=== PATIENT | male | born 1965 | race Caucasian/White ===

== ENCOUNTER 2017-05-09 17:28 | Inpatient (IN) | payer MEDICAID ==
[~2017-05-09] VITALS: Ht 165.1 cm; Wt 92.1 kg
[2017-05-09 18:12] LABS: BG BASE EXCESS 7.4 mmol/L (-2.0-2.0); BG CARBOXYHEMOGLOBIN 3.5 % (0.5-1.5); BG DEOXYHEMOGLOBIN 5.9 % (0.0-5.0); BG HCO3 ACT 38.1 mmol/L (22.0-26.0); BG METHEMOGLOBIN 0.4 % (0.0-1.5); BG OXYGEN SATURATION 93.9 % (92.0-98.5); BG OXYHEMOGLOBIN 90.2 % (94.0-97.0); BG PCO2 82.4 mmHg (35.0-45.0); BG PH 7.283 (7.350-7.450); BG PO2 79.6 mmHg (75.0-100.0); BG SAMPLE SITE RIGHT RADIAL; BG TOTAL HEMOGLOBIN 16.6 g/dL (12.0-18.0); BG VENT MODE NASAL CANNULA
[2017-05-09 18:53] LABS: BASOPHILS % 0.8 % (0.0-2.0); EOSINOPHILS % 0.1 % (0.0-5.0); HEMATOCRIT. 53.7 % (42.0-52.0); HEMOGLOBIN. 15.7 g/dL (14.0-18.0); LYMPHOCYTES % 15.7 % (20.0-50.0); MEAN CORPUSCULAR HEMOGLOBIN 21.9 pg (28.0-32.0); MEAN CORPUSCULAR VOLUME 74.9 fL (80.0-94.0); MEAN PLATELET VOLUME 8.8 fl (7.4-10.4); MONOCYTES % 5.5 % (2.0-8.0); NEUTROPHILS % 77.9 % (40.0-76.0); PLATELET 143 x1000/uL (130-400); RED BLOOD CELL COUNT 7.17 mill/uL (4.7-6.1)
[2017-05-09 18:55] LABS: CHLORIDE 100 mEq/L (98-107)
[2017-05-09 18:59] LABS: INR 1.3; PROTHROMBIN TIME 13.1 sec
[2017-05-09 19:05] LABS: CARBON DIOXIDE 38 mEq/L (21-32); TROPONIN I < 0.02 ng/mL (0.00-0.04)
[2017-05-09 19:49] LABS: PLATELET ESTIMATE NORMAL
[2017-05-09] MEDS ORDERED: IPRATROPIUM/ALBUTEROL 0.5-3(2.5)MG/3ML NEB INH PRN (21:30)
[2017-05-09] MEDS ORDERED: ONDANSETRON HCL 4MG/2ML VIAL IV PRN (21:30)
[2017-05-09 21:48] LABS: CLARITY URINE CLEAR (CLEAR); COLOR URINE DARK YELLOW (YELLOW); GLUCOSE URINE NEGATIVE (NEGATIVE); KETONES URINE NEGATIVE (NEGATIVE); LEUKOCYTE ESTERASE URINE NEGATIVE (NEGATIVE); NITRITE URINE NEGATIVE (NEGATIVE); OCCULT BLOOD URINE NEGATIVE (NEGATIVE); PROTEIN URINE NEGATIVE (NEGATIVE); SPECIFIC GRAVITY URINE 1.018 (1.005-1.030)
[2017-05-09 21:57] LABS: *AMPHETAMINES SCREEN URINE NEGATIVE (NEGATIVE); *BARBITURATES SCREEN URINE NEGATIVE (NEGATIVE); *BENZODIAZEPINES SCREEN URINE NEGATIVE (NEGATIVE); *COCAINE SCREEN URINE NEGATIVE (NEGATIVE); CANNABINOID URINE SCREEN NEGATIVE (NEGATIVE); METHADONE URINE SCREEN NEGATIVE (NEGATIVE); OPIATES URINE SCREEN NEGATIVE (NEGATIVE); PHENCYCLIDINE URINE SCREEN NEGATIVE (NEGATIVE)
[2017-05-10] VITALS (28 sets, daily range): BP systolic 83–139; BP diastolic 43–80
[2017-05-10] MEDS ORDERED: LEVOFLOXACIN 500MG PREMIX 100 ML IV NR (00:41)
[2017-05-10 05:50] LABS: CARBON DIOXIDE 35 mEq/L (21-32); CHLORIDE 100 mEq/L (98-107)
[2017-05-10 06:16] LABS: PHOSPHORUS 2.5 mg/dL (2.5-4.9)
[2017-05-10 07:02] LABS: BASOPHILS % 0.6 % (0.0-2.0); EOSINOPHILS % 0.2 % (0.0-5.0); HEMATOCRIT. 43.6 % (42.0-52.0); HEMOGLOBIN. 15.2 g/dL (14.0-18.0); LYMPHOCYTES % 10.6 % (20.0-50.0); MEAN CORPUSCULAR HEMOGLOBIN 27.7 pg (28.0-32.0); MEAN CORPUSCULAR VOLUME 79.4 fL (80.0-94.0); MONOCYTES % 6.2 % (2.0-8.0); NEUTROPHILS % 82.4 % (40.0-76.0); RED BLOOD CELL COUNT 5.49 mill/uL (4.7-6.1); RED CELL DISTRIBUTION WIDTH 21.5 % (11.6-14.6)
[2017-05-10 07:38] LABS: PLATELET 122 x1000/uL (130-400)
[2017-05-10] MEDS: PANTOPRAZOLE SODIUM 40 MG/VIAL IV SCH (09:00)
[2017-05-10] MEDS: IPRATROPIUM/ALBUTEROL 0.5-3(2.5)MG/3ML NEB INH SCH ×3 (09:14→20:55)
[2017-05-10 10:20] LABS: BG BASE EXCESS 6.3 mmol/L (-2.0-2.0); BG BILEVEL POS AIRWAY PRESSURE 15/5; BG DEOXYHEMOGLOBIN 4.4 % (0.0-5.0); BG FRACTION INSPIRED OXYGEN 100; BG HCO3 ACT 35.7 mmol/L (22.0-26.0); BG METHEMOGLOBIN 0.5 % (0.0-1.5); BG OXYGEN SATURATION 95.5 % (92.0-98.5); BG OXYHEMOGLOBIN 93.1 % (94.0-97.0); BG PH 7.307 (7.350-7.450); BG PO2 85.1 mmHg (75.0-100.0); BG PRESSURE SUPPORT 10; BG SAMPLE SITE RIGHT RADIAL; BG TOTAL HEMOGLOBIN 15.5 g/dL (12.0-18.0); BG VENT MODE MASK - BIPAP; BG VENT RATE 20 set
[2017-05-10] MEDS ORDERED: FUROSEMIDE 40MG/4ML VIAL IVP NR (11:15)
[2017-05-10] MEDS ORDERED: TRAMADOL 50MG TABLET PO PRN (12:30)
[2017-05-10] MEDS ORDERED: SUCCINYLCHOLINE CHLORIDE 200MG/10ML VIAL IV ONE (14:00)
[2017-05-10] MEDS: METHYLPREDNISOLONE SOD SUCC 125 MG/2 ML VIAL IV SCH ×2 (14:00→21:34)
[2017-05-10] MEDS ORDERED: ETOMIDATE 2MG/ML 10ML VIAL IV ONE (14:00)
[2017-05-10] MEDS: BUDESONIDE 0.5MG/2ML NEB HHN SCH ×2 (16:13→20:56)
[2017-05-10 18:36] LABS: BG BASE EXCESS 13.6 mmol/L (-2.0-2.0); BG BILEVEL POS AIRWAY PRESSURE 15/5; BG CARBOXYHEMOGLOBIN 1.7 % (0.5-1.5); BG DEOXYHEMOGLOBIN 8.2 % (0.0-5.0); BG FRACTION INSPIRED OXYGEN 100; BG HCO3 ACT 48.9 mmol/L (22.0-26.0); BG METHEMOGLOBIN 0.2 % (0.0-1.5); BG OXYGEN SATURATION 91.6 % (92.0-98.5); BG OXYHEMOGLOBIN 89.9 % (94.0-97.0); BG PCO2 129.9 mmHg (35.0-45.0); BG PH 7.194 (7.350-7.450); BG PO2 71.1 mmHg (75.0-100.0); BG SAMPLE SITE RIGHT RADIAL; BG TOTAL HEMOGLOBIN 16.5 g/dL (12.0-18.0); BG VENT MODE MASK - BIPAP
[2017-05-10 20:16] LABS: BG BASE EXCESS 9.4 mmol/L (-2.0-2.0); BG CARBOXYHEMOGLOBIN 1.9 % (0.5-1.5); BG DEOXYHEMOGLOBIN 14.5 % (0.0-5.0); BG FRACTION INSPIRED OXYGEN 100; BG HCO3 ACT 37.5 mmol/L (22.0-26.0); BG METHEMOGLOBIN 0.4 % (0.0-1.5); BG OXYGEN SATURATION 85.2 % (92.0-98.5); BG OXYHEMOGLOBIN 83.2 % (94.0-97.0); BG PCO2 65.1 mmHg (35.0-45.0); BG PH 7.378 (7.350-7.450); BG PO2 48.9 mmHg (75.0-100.0); BG SAMPLE SITE RIGHT BRACHIAL; BG TIDAL VOLUME(mL) 450 mL; BG TOTAL HEMOGLOBIN 15.3 g/dL (12.0-18.0); BG VENT MODE VENT - A/C; BG VENT RATE 16 set
[2017-05-10] MEDS ORDERED: SODIUM CHLORIDE 0.9% 250 ML IV ONE (20:30)
[2017-05-10] MEDS ORDERED: PROPOFOL 10MG/ML 100ML 100 ML IV PRN (20:45)
[2017-05-10] MEDS ORDERED: NOREPINEPHRINE 4 MG in DEXT 5% WATER 246 ML IV PRN (20:45)
[2017-05-10] MEDS ORDERED: SODIUM BICARBONATE 8.4% 1 MEQ/ML 50ML SYR IV SCH (20:45)
[2017-05-10] MEDS ORDERED: SODIUM BICARBONATE 100 MEQ in DEXTROSE 5% WATER 1,000 ML IV SCH (21:00)
[2017-05-10] MEDS ORDERED: SODIUM CHLORIDE 0.9% 250 ML IV NR (21:23)
[2017-05-11] VITALS (97 sets, daily range): BP systolic 82–122; BP diastolic 38–99
[2017-05-11] MEDS: LEVOFLOXACIN 500MG PREMIX 100 ML IV SCH (01:52)
[2017-05-11] MEDS ORDERED: LEVOFLOXACIN 500MG PREMIX 100 ML IV SCH (02:00)
[2017-05-11] MEDS: IPRATROPIUM/ALBUTEROL 0.5-3(2.5)MG/3ML NEB INH SCH ×4 (02:08→19:49)
[2017-05-11 05:16] LABS: HEMATOCRIT. 48.3 % (42.0-52.0); HEMOGLOBIN. 14.5 g/dL (14.0-18.0); MEAN CORPUSCULAR HEMOGLOBIN 22.9 pg (28.0-32.0); MEAN CORPUSCULAR VOLUME 76.1 fL (80.0-94.0); PLATELET 116 x1000/uL (130-400); RED BLOOD CELL COUNT 6.35 mill/uL (4.7-6.1); RED CELL DISTRIBUTION WIDTH 21.1 % (11.6-14.6)
[2017-05-11] MEDS: METHYLPREDNISOLONE SOD SUCC 125 MG/2 ML VIAL IV SCH ×3 (05:48→21:55)
[2017-05-11 05:49] LABS: CARBON DIOXIDE 38 mEq/L (21-32); CHLORIDE 98 mEq/L (98-107); TOTAL IRON BINDING CAPACITY 490 ug/dL (250-450)
[2017-05-11 07:07] LABS: PLATELET ESTIMATE DECREASED
[2017-05-11 07:23] LABS: BG BASE EXCESS 13.5 mmol/L (-2.0-2.0); BG CARBOXYHEMOGLOBIN 1.6 % (0.5-1.5); BG DEOXYHEMOGLOBIN 5.2 % (0.0-5.0); BG FRACTION INSPIRED OXYGEN 100; BG HCO3 ACT 37.6 mmol/L (22.0-26.0); BG METHEMOGLOBIN 0.3 % (0.0-1.5); BG OXYGEN SATURATION 94.7 % (92.0-98.5); BG OXYHEMOGLOBIN 92.9 % (94.0-97.0); BG PCO2 44.3 mmHg (35.0-45.0); BG PH 7.547 (7.350-7.450); BG PO2 66.2 mmHg (75.0-100.0); BG SAMPLE SITE RIGHT BRACHIAL; BG TIDAL VOLUME(mL) 500 mL; BG TOTAL HEMOGLOBIN 15.7 g/dL (12.0-18.0); BG VENT MODE VENT - A/C; BG VENT RATE 14 set
[2017-05-11] MEDS ORDERED: DEXT 5%/0.45% NACL KCL 10MEQ/L 1,000 ML IV SCH (08:30)
[2017-05-11] MEDS: BUDESONIDE 0.5MG/2ML NEB HHN SCH (08:44)
[2017-05-11] MEDS: PANTOPRAZOLE SODIUM 40 MG/VIAL IV SCH (09:34)
[2017-05-11] MEDS: FUROSEMIDE 40MG/4ML VIAL IVP SCH (10:40)
[2017-05-11] MEDS ORDERED: POTASSIUM CHLORIDE INJ 40 MEQ in DEXT 5% WATER 250 ML IV NR (12:00)
[2017-05-11] MEDS: IRON SUCROSE COMPLEX 100 MG/5 ML ML IV SCH (17:52)
[2017-05-12] VITALS (61 sets, daily range): BP systolic 93–114; BP diastolic 46–68
[2017-05-12] MEDS: LEVOFLOXACIN 500MG PREMIX 100 ML IV SCH (01:49)
[2017-05-12] MEDS: IPRATROPIUM/ALBUTEROL 0.5-3(2.5)MG/3ML NEB INH SCH ×4 (01:56→19:53)
[2017-05-12 04:23] LABS: HEMATOCRIT. 51.2 % (42.0-52.0); HEMOGLOBIN. 15.5 g/dL (14.0-18.0); MEAN CORPUSCULAR HEMOGLOBIN 22.1 pg (28.0-32.0); MEAN CORPUSCULAR VOLUME 72.9 fL (80.0-94.0); PLATELET 130 x1000/uL (130-400); RED BLOOD CELL COUNT 7.02 mill/uL (4.7-6.1); RED CELL DISTRIBUTION WIDTH 21.8 % (11.6-14.6)
[2017-05-12 04:36] LABS: CARBON DIOXIDE 33 mEq/L (21-32); CHLORIDE 103 mEq/L (98-107)
[2017-05-12] MEDS: METHYLPREDNISOLONE SOD SUCC 125 MG/2 ML VIAL IV SCH (05:20)
[2017-05-12 07:25] LABS: NUCLEATED RED BLOOD CELLS 1 /100 WBC; PLATELET ESTIMATE NORMAL
[2017-05-12 07:32] LABS: BG BASE EXCESS 5.9 mmol/L (-2.0-2.0); BG CARBOXYHEMOGLOBIN 0.9 % (0.5-1.5); BG DEOXYHEMOGLOBIN 6.1 % (0.0-5.0); BG FRACTION INSPIRED OXYGEN 100; BG HCO3 ACT 30.8 mmol/L (22.0-26.0); BG METHEMOGLOBIN 0.2 % (0.0-1.5); BG OXYGEN SATURATION 93.8 % (92.0-98.5); BG OXYHEMOGLOBIN 92.8 % (94.0-97.0); BG PCO2 44.9 mmHg (35.0-45.0); BG PH 7.454 (7.350-7.450); BG PO2 68.2 mmHg (75.0-100.0); BG SAMPLE SITE RIGHT RADIAL; BG TIDAL VOLUME(mL) 450 mL; BG TOTAL HEMOGLOBIN 16.1 g/dL (12.0-18.0); BG VENT MODE VENT - A/C; BG VENT RATE 14 set
[2017-05-12] MEDS: BUDESONIDE 0.5MG/2ML NEB HHN SCH ×2 (08:40→19:53)
[2017-05-12] MEDS: PANTOPRAZOLE SODIUM 40 MG/VIAL IV SCH (09:04)
[2017-05-12] MEDS: FUROSEMIDE 40MG/4ML VIAL IVP SCH (09:04)
[2017-05-12] MEDS: IRON SUCROSE COMPLEX 100 MG/5 ML ML IV SCH (09:04)
[2017-05-12] MEDS ORDERED: MORPHINE SULFATE 2 MG/ML CPJ (NOT FOR IM USE) IV PRN (09:15)
[2017-05-12] MEDS ORDERED: POTASSIUM CHLORIDE 20MEQ/PACKET PO SCH (09:30)
[2017-05-12] MEDS: METHYLPREDNISOLONE SOD SUCC 40 MG/ML VIAL IV SCH ×2 (14:46→21:25)
[2017-05-12] MEDS: ENOXAPARIN 30MG/0.3ML SYR SUBCUT SCH (21:25)
[2017-05-13] VITALS (28 sets, daily range): BP systolic 91–111; BP diastolic 39–67
[2017-05-13] MEDS: IPRATROPIUM/ALBUTEROL 0.5-3(2.5)MG/3ML NEB INH SCH ×4 (01:55→21:10)
[2017-05-13] MEDS: LEVOFLOXACIN 500MG PREMIX 100 ML IV SCH (02:11)
[2017-05-13 04:56] LABS: HEMATOCRIT. 52.7 % (42.0-52.0); HEMOGLOBIN. 15.7 g/dL (14.0-18.0); MEAN CORPUSCULAR HEMOGLOBIN 21.5 pg (28.0-32.0); MEAN CORPUSCULAR VOLUME 72.3 fL (80.0-94.0); RED CELL DISTRIBUTION WIDTH 22.8 % (11.6-14.6)
[2017-05-13 05:22] LABS: CARBON DIOXIDE 33 mEq/L (21-32); CHLORIDE 106 mEq/L (98-107)
[2017-05-13] MEDS: METHYLPREDNISOLONE SOD SUCC 40 MG/ML VIAL IV SCH ×3 (05:59→21:30)
[2017-05-13 07:21] LABS: PLATELET ESTIMATE NORMAL
[2017-05-13 07:23] LABS: BG BASE EXCESS 4.7 mmol/L (-2.0-2.0); BG CARBOXYHEMOGLOBIN 1.1 % (0.5-1.5); BG DEOXYHEMOGLOBIN 5.8 % (0.0-5.0); BG HCO3 ACT 29.6 mmol/L (22.0-26.0); BG METHEMOGLOBIN 0.3 % (0.0-1.5); BG OXYGEN SATURATION 94.1 % (92.0-98.5); BG OXYHEMOGLOBIN 92.8 % (94.0-97.0); BG PCO2 44.6 mmHg (35.0-45.0); BG PO2 70.8 mmHg (75.0-100.0); BG SAMPLE SITE RIGHT RADIAL; BG TIDAL VOLUME(mL) 450 mL; BG TOTAL HEMOGLOBIN 16.7 g/dL (12.0-18.0); BG VENT MODE VENT - A/C; BG VENT RATE 10 set
[2017-05-13 07:24] LABS: MEAN PLATELET VOLUME 8.7 fl (7.4-10.4); PLATELET 129 x1000/uL (130-400)
[2017-05-13] MEDS: BUDESONIDE 0.5MG/2ML NEB HHN SCH (08:30)
[2017-05-13] MEDS: IRON SUCROSE COMPLEX 100 MG/5 ML ML IV SCH (08:31)
[2017-05-13] MEDS: ENOXAPARIN 30MG/0.3ML SYR SUBCUT SCH ×2 (08:31→21:30)
[2017-05-13] MEDS: PANTOPRAZOLE SODIUM 40 MG/VIAL IV SCH (08:31)
[2017-05-13] MEDS: FUROSEMIDE 40MG/4ML VIAL IVP SCH (08:31)
[2017-05-14] VITALS (22 sets, daily range): BP systolic 85–120; BP diastolic 49–74
[2017-05-14] MEDS: LEVOFLOXACIN 500MG PREMIX 100 ML IV SCH (01:52)
[2017-05-14] MEDS: IPRATROPIUM/ALBUTEROL 0.5-3(2.5)MG/3ML NEB INH SCH ×4 (02:10→20:23)
[2017-05-14 05:07] LABS: HEMATOCRIT. 47.8 % (42.0-52.0); MEAN CORPUSCULAR HEMOGLOBIN 25.7 pg (28.0-32.0); MEAN CORPUSCULAR VOLUME 76.7 fL (80.0-94.0); MEAN PLATELET VOLUME 8.9 fl (7.4-10.4); PLATELET 134 x1000/uL (130-400); RED BLOOD CELL COUNT 6.22 mill/uL (4.7-6.1); RED CELL DISTRIBUTION WIDTH 22.2 % (11.6-14.6)
[2017-05-14 05:12] LABS: CARBON DIOXIDE 33 mEq/L (21-32); CHLORIDE 107 mEq/L (98-107)
[2017-05-14] MEDS: METHYLPREDNISOLONE SOD SUCC 40 MG/ML VIAL IV SCH ×3 (05:30→21:12)
[2017-05-14 06:00] LABS: PLATELET ESTIMATE NORMAL
[2017-05-14 08:02] LABS: BG BASE EXCESS 8.2 mmol/L (-2.0-2.0); BG DEOXYHEMOGLOBIN 8.4 % (0.0-5.0); BG FRACTION INSPIRED OXYGEN 80; BG HCO3 ACT 34.8 mmol/L (22.0-26.0); BG METHEMOGLOBIN 0.2 % (0.0-1.5); BG OXYGEN SATURATION 91.5 % (92.0-98.5); BG OXYHEMOGLOBIN 90.4 % (94.0-97.0); BG PCO2 54.3 mmHg (35.0-45.0); BG PH 7.425 (7.350-7.450); BG PO2 63.3 mmHg (75.0-100.0); BG SAMPLE SITE RIGHT RADIAL; BG TIDAL VOLUME(mL) 450 mL; BG TOTAL HEMOGLOBIN 17.4 g/dL (12.0-18.0); BG VENT MODE VENT - A/C; BG VENT RATE 10 set
[2017-05-14] MEDS: IRON SUCROSE COMPLEX 100 MG/5 ML ML IV SCH (08:45)
[2017-05-14] MEDS: ENOXAPARIN 30MG/0.3ML SYR SUBCUT SCH ×2 (08:45→21:17)
[2017-05-14] MEDS: PANTOPRAZOLE SODIUM 40 MG/VIAL IV SCH (08:45)
[2017-05-14] MEDS: FUROSEMIDE 40MG/4ML VIAL IVP SCH (08:45)
[2017-05-15] VITALS (36 sets, daily range): BP systolic 82–119; BP diastolic 52–73
[2017-05-15] MEDS: IPRATROPIUM/ALBUTEROL 0.5-3(2.5)MG/3ML NEB INH SCH ×4 (01:06→19:59)
[2017-05-15] MEDS: LEVOFLOXACIN 500MG PREMIX 100 ML IV SCH (01:58)
[2017-05-15] MEDS: METHYLPREDNISOLONE SOD SUCC 40 MG/ML VIAL IV SCH ×2 (05:11→21:26)
[2017-05-15 05:27] LABS: HEMATOCRIT. 50.4 % (42.0-52.0); HEMOGLOBIN. 16.7 g/dL (14.0-18.0); MEAN CORPUSCULAR VOLUME 81.5 fL (80.0-94.0); RED BLOOD CELL COUNT 6.18 mill/uL (4.7-6.1)
[2017-05-15 05:47] LABS: CARBON DIOXIDE 35 mEq/L (21-32); CHLORIDE 106 mEq/L (98-107)
[2017-05-15 07:12] LABS: PLATELET ESTIMATE NORMAL
[2017-05-15 07:18] LABS: MEAN PLATELET VOLUME 9.1 fl (7.4-10.4); PLATELET 131 x1000/uL (130-400)
[2017-05-15 07:50] LABS: BG BASE EXCESS 8.1 mmol/L (-2.0-2.0); BG CARBOXYHEMOGLOBIN 1.3 % (0.5-1.5); BG DEOXYHEMOGLOBIN 5.5 % (0.0-5.0); BG FRACTION INSPIRED OXYGEN 60; BG HCO3 ACT 34.9 mmol/L (22.0-26.0); BG METHEMOGLOBIN 0.5 % (0.0-1.5); BG OXYGEN SATURATION 94.4 % (92.0-98.5); BG OXYHEMOGLOBIN 92.7 % (94.0-97.0); BG PCO2 55.1 mmHg (35.0-45.0); BG PO2 74.3 mmHg (75.0-100.0); BG SAMPLE SITE RIGHT RADIAL; BG TIDAL VOLUME(mL) 450 mL; BG TOTAL HEMOGLOBIN 18.2 g/dL (12.0-18.0); BG VENT MODE VENT - A/C; BG VENT RATE 10 set
[2017-05-15] MEDS: PANTOPRAZOLE SODIUM 40 MG/VIAL IV SCH (09:31)
[2017-05-15] MEDS: IRON SUCROSE COMPLEX 100 MG/5 ML ML IV SCH (09:31)
[2017-05-15] MEDS: ENOXAPARIN 30MG/0.3ML SYR SUBCUT SCH ×2 (09:31→21:26)
[2017-05-15] MEDS: FUROSEMIDE 40MG/4ML VIAL IVP SCH (09:32)
[2017-05-16] VITALS (61 sets, daily range): BP systolic 84–116; BP diastolic 37–67
[2017-05-16] MEDS: IPRATROPIUM/ALBUTEROL 0.5-3(2.5)MG/3ML NEB INH SCH ×3 (02:17→21:21)
[2017-05-16] MEDS: LEVOFLOXACIN 500MG PREMIX 100 ML IV SCH (02:21)
[2017-05-16 07:35] LABS: BG BASE EXCESS 9.5 mmol/L (-2.0-2.0); BG FRACTION INSPIRED OXYGEN 50; BG HCO3 ACT 37.5 mmol/L (22.0-26.0); BG METHEMOGLOBIN 0.2 % (0.0-1.5); BG OXYHEMOGLOBIN 94.8 % (94.0-97.0); BG PCO2 61.3 mmHg (35.0-45.0); BG PH 7.405 (7.350-7.450); BG PO2 78.4 mmHg (75.0-100.0); BG SAMPLE SITE RIGHT RADIAL; BG TIDAL VOLUME(mL) 450 mL; BG TOTAL HEMOGLOBIN 18.7 g/dL (12.0-18.0); BG VENT MODE VENT - A/C; BG VENT RATE 10 set
[2017-05-16] MEDS: ENOXAPARIN 30MG/0.3ML SYR SUBCUT SCH ×2 (08:42→21:30)
[2017-05-16] MEDS: FUROSEMIDE 40MG/4ML VIAL IVP SCH (08:43)
[2017-05-16] MEDS: PANTOPRAZOLE SODIUM 40 MG/VIAL IV SCH (08:43)
[2017-05-16] MEDS: METHYLPREDNISOLONE SOD SUCC 40 MG/ML VIAL IV SCH ×2 (08:43→21:30)
[2017-05-16] MEDS ORDERED: MAGNESIUM CITRATE 300ML SOLUTION PO SCH (09:00)
[2017-05-16 13:08] LABS: BG BASE EXCESS 12.4 mmol/L (-2.0-2.0); BG CARBOXYHEMOGLOBIN 0.5 % (0.5-1.5); BG CPAP (cmH2O) 0 cm(H2O); BG DEOXYHEMOGLOBIN 5.7 % (0.0-5.0); BG HCO3 ACT 40.7 mmol/L (22.0-26.0); BG METHEMOGLOBIN 0.3 % (0.0-1.5); BG OXYGEN SATURATION 94.3 % (92.0-98.5); BG OXYHEMOGLOBIN 93.5 % (94.0-97.0); BG PCO2 62.4 mmHg (35.0-45.0); BG PH 7.432 (7.350-7.450); BG PO2 72.5 mmHg (75.0-100.0); BG SAMPLE SITE RIGHT RADIAL; BG TOTAL HEMOGLOBIN 19.2 g/dL (12.0-18.0); BG VENT MODE VENT - CPAP
[2017-05-16] MEDS: LACTULOSE 20G/30ML UDC PO PRN (17:46)
[2017-05-17] VITALS (45 sets, daily range): BP systolic 67–134; BP diastolic 29–91
[2017-05-17] MEDS: LEVOFLOXACIN 500MG PREMIX 100 ML IV SCH (02:16)
[2017-05-17] MEDS: IPRATROPIUM/ALBUTEROL 0.5-3(2.5)MG/3ML NEB INH SCH ×4 (02:38→20:04)
[2017-05-17] MEDS: PANTOPRAZOLE SODIUM 40 MG/VIAL IV SCH (09:07)
[2017-05-17] MEDS: METHYLPREDNISOLONE SOD SUCC 40 MG/ML VIAL IV SCH ×2 (09:07→21:03)
[2017-05-17] MEDS: ENOXAPARIN 30MG/0.3ML SYR SUBCUT SCH ×2 (09:12→21:03)
[2017-05-17 11:11] LABS: BG BASE EXCESS 6.7 mmol/L (-2.0-2.0); BG CARBOXYHEMOGLOBIN 1.3 % (0.5-1.5); BG DEOXYHEMOGLOBIN 5.6 % (0.0-5.0); BG FRACTION INSPIRED OXYGEN 60; BG HCO3 ACT 34.8 mmol/L (22.0-26.0); BG METHEMOGLOBIN 0.6 % (0.0-1.5); BG OXYGEN SATURATION 94.3 % (92.0-98.5); BG OXYHEMOGLOBIN 92.5 % (94.0-97.0); BG PCO2 60.8 mmHg (35.0-45.0); BG PH 7.376 (7.350-7.450); BG PO2 74.3 mmHg (75.0-100.0); BG SAMPLE SITE RIGHT RADIAL; BG TOTAL HEMOGLOBIN 19.1 g/dL (12.0-18.0); BG VENT MODE T-TUBE
[2017-05-18] VITALS (44 sets, daily range): BP systolic 89–117; BP diastolic 42–66
[2017-05-18] MEDS: LEVOFLOXACIN 500MG PREMIX 100 ML IV SCH (02:05)
[2017-05-18] MEDS: IPRATROPIUM/ALBUTEROL 0.5-3(2.5)MG/3ML NEB INH SCH ×4 (02:11→19:51)
[2017-05-18 05:28] LABS: HEMOGLOBIN. 17.3 g/dL (14.0-18.0); MEAN CORPUSCULAR HEMOGLOBIN 28.3 pg (28.0-32.0); MEAN CORPUSCULAR VOLUME 83.4 fL (80.0-94.0); MEAN PLATELET VOLUME 9.5 fl (7.4-10.4); PLATELET 126 x1000/uL (130-400); RED BLOOD CELL COUNT 6.11 mill/uL (4.7-6.1); RED CELL DISTRIBUTION WIDTH 23.9 % (11.6-14.6)
[2017-05-18 05:48] LABS: CARBON DIOXIDE 38 mEq/L (21-32); CHLORIDE 108 mEq/L (98-107)
[2017-05-18 07:08] LABS: PLATELET ESTIMATE SLIGHTLY DECREASED
[2017-05-18] MEDS ORDERED: LORAZEPAM 2MG/ML CPJ IV NR (08:15)
[2017-05-18] MEDS ORDERED: SODIUM CHLORIDE 0.45% 500 ML IV ONE (09:15)
[2017-05-18] MEDS ORDERED: BISACODYL 5MG TABLET PO NR (09:15)
[2017-05-18] MEDS: ENOXAPARIN 30MG/0.3ML SYR SUBCUT SCH ×2 (09:49→20:46)
[2017-05-18] MEDS: METHYLPREDNISOLONE SOD SUCC 40 MG/ML VIAL IV SCH ×2 (09:49→20:46)
[2017-05-18] MEDS: PANTOPRAZOLE SODIUM 40 MG/VIAL IV SCH (09:49)
[2017-05-18] MEDS: DOCUSATE SODIUM 250MG CAPSULE PO SCH (09:50)
[2017-05-18] MEDS ORDERED: MAGNESIUM CITRATE 300ML SOLUTION PO NR (10:30)
[2017-05-19] VITALS (37 sets, daily range): BP systolic 83–107; BP diastolic 45–71
[2017-05-19] MEDS: IPRATROPIUM/ALBUTEROL 0.5-3(2.5)MG/3ML NEB INH SCH ×4 (01:51→20:32)
[2017-05-19 05:28] LABS: HEMATOCRIT. 55.8 % (42.0-52.0); HEMOGLOBIN. 16.5 g/dL (14.0-18.0); MEAN CORPUSCULAR HEMOGLOBIN 23.2 pg (28.0-32.0); MEAN CORPUSCULAR VOLUME 78.4 fL (80.0-94.0); MEAN PLATELET VOLUME 9.3 fl (7.4-10.4); PLATELET 128 x1000/uL (130-400); RED BLOOD CELL COUNT 7.12 mill/uL (4.7-6.1); RED CELL DISTRIBUTION WIDTH 23.7 % (11.6-14.6)
[2017-05-19 05:50] LABS: CARBON DIOXIDE 39 mEq/L (21-32); CHLORIDE 103 mEq/L (98-107)
[2017-05-19 07:44] LABS: PLATELET ESTIMATE DECREASED
[2017-05-19 08:04] LABS: BG BASE EXCESS 11.5 mmol/L (-2.0-2.0); BG FRACTION INSPIRED OXYGEN 40; BG HCO3 ACT 42.5 mmol/L (22.0-26.0); BG METHEMOGLOBIN 0.5 % (0.0-1.5); BG OXYGEN SATURATION 92.7 % (92.0-98.5); BG OXYHEMOGLOBIN 89.5 % (94.0-97.0); BG PH 7.322 (7.350-7.450); BG PO2 68.6 mmHg (75.0-100.0); BG SAMPLE SITE LEFT RADIAL; BG TOTAL HEMOGLOBIN 17.3 g/dL (12.0-18.0); BG VENT MODE MASK - AEROSOL
[2017-05-19] MEDS: LACTULOSE 20G/30ML UDC PO PRN (09:27)
[2017-05-19] MEDS: PANTOPRAZOLE SODIUM 40 MG/VIAL IV SCH (09:27)
[2017-05-19] MEDS: ENOXAPARIN 30MG/0.3ML SYR SUBCUT SCH ×2 (09:30→20:56)
[2017-05-19] MEDS: DOCUSATE SODIUM 250MG CAPSULE PO SCH (09:30)
[2017-05-19] MEDS: METHYLPREDNISOLONE SOD SUCC 40 MG/ML VIAL IV SCH (11:54)
[2017-05-19 13:33] LABS: BG BASE EXCESS 12.1 mmol/L (-2.0-2.0); BG CARBOXYHEMOGLOBIN 2.8 % (0.5-1.5); BG DEOXYHEMOGLOBIN 4.6 % (0.0-5.0); BG FRACTION INSPIRED OXYGEN 40; BG HCO3 ACT 42.6 mmol/L (22.0-26.0); BG METHEMOGLOBIN 0.5 % (0.0-1.5); BG OXYGEN SATURATION 95.2 % (92.0-98.5); BG OXYHEMOGLOBIN 92.1 % (94.0-97.0); BG PCO2 80.2 mmHg (35.0-45.0); BG PH 7.343 (7.350-7.450); BG PO2 78.8 mmHg (75.0-100.0); BG SAMPLE SITE RIGHT RADIAL; BG TOTAL HEMOGLOBIN 17.3 g/dL (12.0-18.0); BG VENT MODE NASAL CANNULA
[2017-05-20] VITALS (31 sets, daily range): BP systolic 74–111; BP diastolic 38–67
[2017-05-20] MEDS: IPRATROPIUM/ALBUTEROL 0.5-3(2.5)MG/3ML NEB INH SCH ×4 (01:56→21:05)
[2017-05-20 05:24] LABS: BASOPHILS % 0.7 % (0.0-2.0); EOSINOPHILS % 0.1 % (0.0-5.0); HEMATOCRIT. 55.5 % (42.0-52.0); HEMOGLOBIN. 16.1 g/dL (14.0-18.0); LYMPHOCYTES % 11.6 % (20.0-50.0); MEAN CORPUSCULAR HEMOGLOBIN 22.4 pg (28.0-32.0); MEAN CORPUSCULAR VOLUME 77.5 fL (80.0-94.0); MONOCYTES % 4.9 % (2.0-8.0); NEUTROPHILS % 82.7 % (40.0-76.0); RED BLOOD CELL COUNT 7.16 mill/uL (4.7-6.1)
[2017-05-20 05:42] LABS: CHLORIDE 100 mEq/L (98-107)
[2017-05-20 07:43] LABS: BG BASE EXCESS 11.4 mmol/L (-2.0-2.0); BG BILEVEL POS AIRWAY PRESSURE 15/5; BG CARBOXYHEMOGLOBIN 2.7 % (0.5-1.5); BG DEOXYHEMOGLOBIN 8.5 % (0.0-5.0); BG FRACTION INSPIRED OXYGEN 40; BG HCO3 ACT 39.5 mmol/L (22.0-26.0); BG METHEMOGLOBIN 0.2 % (0.0-1.5); BG OXYGEN SATURATION 91.2 % (92.0-98.5); BG OXYHEMOGLOBIN 88.6 % (94.0-97.0); BG PH 7.408 (7.350-7.450); BG PO2 60.9 mmHg (75.0-100.0); BG SAMPLE SITE RIGHT RADIAL; BG TOTAL HEMOGLOBIN 16.9 g/dL (12.0-18.0); BG VENT MODE MASK - BIPAP
[2017-05-20 07:52] LABS: PLATELET 116 x1000/uL (130-400)
[2017-05-20 08:32] LABS: CARBON DIOXIDE 42 mEq/L (21-32)
[2017-05-20] MEDS: DOCUSATE SODIUM 250MG CAPSULE PO SCH (09:34)
[2017-05-20] MEDS: PREDNISONE 20MG TABLET PO SCH (09:35)
[2017-05-20] MEDS: LACTULOSE 20G/30ML UDC PO PRN ×2 (09:35→18:43)
[2017-05-20] MEDS: PANTOPRAZOLE SODIUM 40 MG/VIAL IV SCH (09:35)
[2017-05-20] MEDS: ENOXAPARIN 30MG/0.3ML SYR SUBCUT SCH ×2 (09:35→20:43)
[2017-05-20] MEDS ORDERED: LACTULOSE 20G/30ML UDC PO NR (14:42)
[2017-05-21] VITALS (38 sets, daily range): BP systolic 87–108; BP diastolic 48–67
[2017-05-21] MEDS: IPRATROPIUM/ALBUTEROL 0.5-3(2.5)MG/3ML NEB INH SCH ×4 (03:32→20:31)
[2017-05-21 06:25] LABS: HEMATOCRIT. 52.8 % (42.0-52.0); HEMOGLOBIN. 15.5 g/dL (14.0-18.0); MEAN CORPUSCULAR HEMOGLOBIN 22.6 pg (28.0-32.0); MEAN CORPUSCULAR VOLUME 77.1 fL (80.0-94.0); MEAN PLATELET VOLUME 8.7 fl (7.4-10.4); PLATELET 111 x1000/uL (130-400); RED BLOOD CELL COUNT 6.85 mill/uL (4.7-6.1); RED CELL DISTRIBUTION WIDTH 24.5 % (11.6-14.6)
[2017-05-21 07:15] LABS: PLATELET ESTIMATE SLIGHTLY DECREASED
[2017-05-21 07:26] LABS: CARBON DIOXIDE 39 mEq/L (21-32); CHLORIDE 98 mEq/L (98-107)
[2017-05-21] MEDS: PANTOPRAZOLE SODIUM 40 MG/VIAL IV SCH (08:48)
[2017-05-21] MEDS: PREDNISONE 20MG TABLET PO SCH (08:48)
[2017-05-21] MEDS: DOCUSATE SODIUM 250MG CAPSULE PO SCH (08:48)
[2017-05-21] MEDS: ENOXAPARIN 30MG/0.3ML SYR SUBCUT SCH ×2 (08:49→21:48)
[2017-05-21 08:55] LABS: BG BASE EXCESS 9.1 mmol/L (-2.0-2.0); BG BILEVEL POS AIRWAY PRESSURE 15/5; BG DEOXYHEMOGLOBIN 5.8 % (0.0-5.0); BG FRACTION INSPIRED OXYGEN 40; BG METHEMOGLOBIN 0.5 % (0.0-1.5); BG OXYHEMOGLOBIN 90.7 % (94.0-97.0); BG PH 7.359 (7.350-7.450); BG PO2 73.8 mmHg (75.0-100.0); BG SAMPLE SITE RIGHT RADIAL; BG TOTAL HEMOGLOBIN 16.8 g/dL (12.0-18.0); BG VENT MODE MASK - BIPAP
[2017-05-21] MEDS ORDERED: POTASSIUM CHLORIDE 20MEQ TABLET SR PO SCH (09:45)
[2017-05-21] MEDS: DOCUSATE SODIUM SUGAR FREE 100MG/10ML UDC PO SCH (09:45)
[2017-05-22] VITALS (16 sets, daily range): BP systolic 85–101; BP diastolic 48–65
[2017-05-22] MEDS: IPRATROPIUM/ALBUTEROL 0.5-3(2.5)MG/3ML NEB INH SCH ×4 (01:25→20:31)
[2017-05-22 06:52] LABS: BASOPHILS % 0.3 % (0.0-2.0); EOSINOPHILS % 0.2 % (0.0-5.0); HEMATOCRIT. 49.8 % (42.0-52.0); HEMOGLOBIN. 15.2 g/dL (14.0-18.0); LYMPHOCYTES % 17.4 % (20.0-50.0); MEAN CORPUSCULAR HEMOGLOBIN 24.3 pg (28.0-32.0); MEAN CORPUSCULAR VOLUME 79.7 fL (80.0-94.0); MEAN PLATELET VOLUME 9.1 fl (7.4-10.4); MONOCYTES % 4.8 % (2.0-8.0); NEUTROPHILS % 77.3 % (40.0-76.0); PLATELET 95 x1000/uL (130-400); RED BLOOD CELL COUNT 6.24 mill/uL (4.7-6.1); RED CELL DISTRIBUTION WIDTH 24.4 % (11.6-14.6)
[2017-05-22 07:42] LABS: CARBON DIOXIDE 38 mEq/L (21-32); CHLORIDE 99 mEq/L (98-107)
[2017-05-22 08:36] LABS: BG BASE EXCESS 9.6 mmol/L (-2.0-2.0); BG BILEVEL POS AIRWAY PRESSURE 15/5; BG CARBOXYHEMOGLOBIN 1.9 % (0.5-1.5); BG DEOXYHEMOGLOBIN 5.4 % (0.0-5.0); BG FRACTION INSPIRED OXYGEN 40; BG HCO3 ACT 37.3 mmol/L (22.0-26.0); BG METHEMOGLOBIN 0.2 % (0.0-1.5); BG OXYGEN SATURATION 94.5 % (92.0-98.5); BG OXYHEMOGLOBIN 92.5 % (94.0-97.0); BG PCO2 62.3 mmHg (35.0-45.0); BG PH 7.395 (7.350-7.450); BG PO2 78.8 mmHg (75.0-100.0); BG SAMPLE SITE RIGHT RADIAL; BG TOTAL HEMOGLOBIN 16.1 g/dL (12.0-18.0); BG VENT MODE MASK - BIPAP; BG VENT RATE 14 set
[2017-05-22] MEDS: PREDNISONE 20MG TABLET PO SCH (09:50)
[2017-05-22] MEDS: ENOXAPARIN 30MG/0.3ML SYR SUBCUT SCH ×2 (09:50→21:00)
[2017-05-22 10:11] LABS: PLATELET ESTIMATE DECREASED
[2017-05-22] MEDS: PANTOPRAZOLE SODIUM 40 MG/VIAL IV SCH (12:56)
[2017-05-22] MEDS: BISACODYL 5MG TABLET PO PRN (12:56)
[2017-05-22] MEDS: DOCUSATE SODIUM SUGAR FREE 100MG/10ML UDC PO SCH (12:56)
[2017-05-22] MEDS: LACTULOSE 20G/30ML UDC PO PRN (12:56)
[2017-05-22] MEDS ORDERED: FUROSEMIDE 20MG/2ML VIAL IVP NR (13:40)
[2017-05-23] VITALS (12 sets, daily range): BP systolic 81–94; BP diastolic 45–57
[2017-05-23] MEDS: IPRATROPIUM/ALBUTEROL 0.5-3(2.5)MG/3ML NEB INH SCH ×4 (01:58→21:55)
[2017-05-23 07:12] LABS: BASOPHILS % 0.3 % (0.0-2.0); EOSINOPHILS % 0.7 % (0.0-5.0); HEMATOCRIT. 41.4 % (42.0-52.0); HEMOGLOBIN. 14.9 g/dL (14.0-18.0); LYMPHOCYTES % 17.8 % (20.0-50.0); MEAN CORPUSCULAR HEMOGLOBIN 29.5 pg (28.0-32.0); MEAN CORPUSCULAR VOLUME 81.8 fL (80.0-94.0); MONOCYTES % 6.3 % (2.0-8.0); NEUTROPHILS % 74.9 % (40.0-76.0); RED BLOOD CELL COUNT 5.06 mill/uL (4.7-6.1); RED CELL DISTRIBUTION WIDTH 25.3 % (11.6-14.6)
[2017-05-23 07:44] LABS: CARBON DIOXIDE 39 mEq/L (21-32); CHLORIDE 98 mEq/L (98-107)
[2017-05-23] MEDS: DOCUSATE SODIUM SUGAR FREE 100MG/10ML UDC PO SCH (08:24)
[2017-05-23] MEDS: ENOXAPARIN 30MG/0.3ML SYR SUBCUT SCH (08:24)
[2017-05-23] MEDS: PANTOPRAZOLE SODIUM 40 MG/VIAL IV SCH (08:24)
[2017-05-23 13:45] LABS: PLATELET 96 x1000/uL (130-400)
[2017-05-23 16:58] LABS: BG BASE EXCESS 7.5 mmol/L (-2.0-2.0); BG CARBOXYHEMOGLOBIN 2.1 % (0.5-1.5); BG DEOXYHEMOGLOBIN 4.2 % (0.0-5.0); BG FRACTION INSPIRED OXYGEN 60; BG HCO3 ACT 35.2 mmol/L (22.0-26.0); BG METHEMOGLOBIN 0.4 % (0.0-1.5); BG OXYGEN SATURATION 95.7 % (92.0-98.5); BG OXYHEMOGLOBIN 93.3 % (94.0-97.0); BG PCO2 61.5 mmHg (35.0-45.0); BG PH 7.375 (7.350-7.450); BG PO2 82.6 mmHg (75.0-100.0); BG SAMPLE SITE RIGHT RADIAL; BG TOTAL HEMOGLOBIN 15.8 g/dL (12.0-18.0); BG VENT MODE VAPOTHERM
[2017-05-23] MEDS: BISACODYL 5MG TABLET PO PRN (17:41)
[2017-05-23] MEDS: LACTULOSE 20G/30ML UDC PO PRN (17:41)
[2017-05-23] MEDS ORDERED: SODIUM CHLORIDE 0.9% 500 ML IV ONE (17:45)
[2017-05-23] MEDS ORDERED: MAGNESIUM CITRATE 300ML SOLUTION PO NR (18:45)
[2017-05-24] VITALS (13 sets, daily range): BP systolic 77–104; BP diastolic 39–56
[2017-05-24] MEDS: IPRATROPIUM/ALBUTEROL 0.5-3(2.5)MG/3ML NEB INH SCH ×4 (02:29→19:59)
[2017-05-24] MEDS ORDERED: SODIUM CHLORIDE 0.9% 250 ML IV ONE ×2 (04:45→05:00)
[2017-05-24 06:42] LABS: BASOPHILS % 0.5 % (0.0-2.0); EOSINOPHILS % 1.3 % (0.0-5.0); HEMATOCRIT. 42.5 % (42.0-52.0); HEMOGLOBIN. 14.7 g/dL (14.0-18.0); LYMPHOCYTES % 13.4 % (20.0-50.0); MEAN CORPUSCULAR HEMOGLOBIN 28.4 pg (28.0-32.0); MEAN CORPUSCULAR VOLUME 82.1 fL (80.0-94.0); MONOCYTES % 7.1 % (2.0-8.0); NEUTROPHILS % 77.7 % (40.0-76.0); RED BLOOD CELL COUNT 5.17 mill/uL (4.7-6.1); RED CELL DISTRIBUTION WIDTH 24.8 % (11.6-14.6)
[2017-05-24 08:11] LABS: CARBON DIOXIDE 30 mEq/L (21-32); CHLORIDE 103 mEq/L (98-107)
[2017-05-24 08:29] LABS: BG BASE EXCESS 7.5 mmol/L (-2.0-2.0); BG CARBOXYHEMOGLOBIN 1.8 % (0.5-1.5); BG DEOXYHEMOGLOBIN 8.9 % (0.0-5.0); BG FRACTION INSPIRED OXYGEN 100; BG HCO3 ACT 36.8 mmol/L (22.0-26.0); BG METHEMOGLOBIN 0.4 % (0.0-1.5); BG OXYGEN SATURATION 90.9 % (92.0-98.5); BG OXYHEMOGLOBIN 88.9 % (94.0-97.0); BG PCO2 71.7 mmHg (35.0-45.0); BG PH 7.328 (7.350-7.450); BG PO2 64.7 mmHg (75.0-100.0); BG SAMPLE SITE RIGHT RADIAL; BG TOTAL HEMOGLOBIN 16.2 g/dL (12.0-18.0); BG VENT MODE VAPOTHERM
[2017-05-24] MEDS: PANTOPRAZOLE SODIUM 40 MG/VIAL IV SCH (08:42)
[2017-05-24] MEDS: DOCUSATE SODIUM SUGAR FREE 100MG/10ML UDC PO SCH (08:43)
[2017-05-24] MEDS: BUDESONIDE 0.5MG/2ML NEB HHN SCH ×2 (10:06→19:59)
[2017-05-24] MEDS: METHYLPREDNISOLONE SOD SUCC 40 MG/ML VIAL IV SCH ×2 (10:41→17:45)
[2017-05-24] MEDS: NYSTATIN 100,000 UNITS/ML 5ML UDC SSW SCH ×2 (12:57→17:45)
[2017-05-24 20:23] LABS: PLATELET 87 x1000/uL (130-400); PLATELET ESTIMATE DECREASED
[2017-05-24 20:24] LABS: MEAN PLATELET VOLUME 10.1 fl (7.4-10.4)
[2017-05-24] MEDS ORDERED: ACETAMINOPHEN 650MG/20.3ML UDC PO PRN (20:45)
[2017-05-25] VITALS (12 sets, daily range): BP systolic 78–115; BP diastolic 40–65
[2017-05-25] MEDS: NYSTATIN 100,000 UNITS/ML 5ML UDC SSW SCH ×5 (00:06→23:16)
[2017-05-25] MEDS: IPRATROPIUM/ALBUTEROL 0.5-3(2.5)MG/3ML NEB INH SCH ×4 (01:55→20:22)
[2017-05-25] MEDS: METHYLPREDNISOLONE SOD SUCC 40 MG/ML VIAL IV SCH ×2 (02:10→11:04)
[2017-05-25 07:33] LABS: CARBON DIOXIDE 35 mEq/L (21-32); CHLORIDE 101 mEq/L (98-107)
[2017-05-25] MEDS: BUDESONIDE 0.5MG/2ML NEB HHN SCH ×2 (08:06→20:23)
[2017-05-25] MEDS: DOCUSATE SODIUM SUGAR FREE 100MG/10ML UDC PO SCH (09:00)
[2017-05-25] MEDS: PANTOPRAZOLE SODIUM 40 MG/VIAL IV SCH (09:02)
[2017-05-25 09:08] LABS: HEMATOCRIT. 51.6 % (42.0-52.0); HEMOGLOBIN. 15.1 g/dL (14.0-18.0); MEAN CORPUSCULAR HEMOGLOBIN 22.6 pg (28.0-32.0); MEAN CORPUSCULAR VOLUME 77.4 fL (80.0-94.0); MEAN PLATELET VOLUME 9.1 fl (7.4-10.4); PLATELET 109 x1000/uL (130-400); RED BLOOD CELL COUNT 6.66 mill/uL (4.7-6.1); RED CELL DISTRIBUTION WIDTH 25.3 % (11.6-14.6)
[2017-05-25 11:07] LABS: PLATELET ESTIMATE SLIGHTLY DECREASED
[2017-05-25] MEDS ORDERED: ENOXAPARIN 40MG/0.4ML SYR SUBCUT SCH (12:00)
[2017-05-25 12:48] LABS: BG BASE EXCESS 7.1 mmol/L (-2.0-2.0); BG CARBOXYHEMOGLOBIN 1.2 % (0.5-1.5); BG DEOXYHEMOGLOBIN 8.6 % (0.0-5.0); BG HCO3 ACT 35.9 mmol/L (22.0-26.0); BG METHEMOGLOBIN 0.4 % (0.0-1.5); BG OXYGEN SATURATION 91.3 % (92.0-98.5); BG OXYHEMOGLOBIN 89.8 % (94.0-97.0); BG PCO2 68.7 mmHg (35.0-45.0); BG PH 7.336 (7.350-7.450); BG SAMPLE SITE RIGHT RADIAL; BG TOTAL HEMOGLOBIN 15.9 g/dL (12.0-18.0); BG VENT MODE VAPOTHERM
[2017-05-25] MEDS: METHYLPREDNISOLONE SOD SUCC 125 MG/2 ML VIAL IV SCH (17:37)
[2017-05-25] MEDS: PIPERACILLIN/TAZ 3.375G PREMIX 50 ML IV SCH ×2 (17:37→23:17)
[2017-05-25] MEDS: ENOXAPARIN 30MG/0.3ML SYR SUBCUT SCH (21:22)
[2017-05-26] VITALS (12 sets, daily range): BP systolic 81–98; BP diastolic 40–54
[2017-05-26] MEDS: IPRATROPIUM/ALBUTEROL 0.5-3(2.5)MG/3ML NEB INH SCH ×5 (00:07→23:50)
[2017-05-26] MEDS: METHYLPREDNISOLONE SOD SUCC 125 MG/2 ML VIAL IV SCH ×3 (01:39→17:31)
[2017-05-26] MEDS: NYSTATIN 100,000 UNITS/ML 5ML UDC SSW SCH ×3 (05:45→17:31)
[2017-05-26] MEDS: PIPERACILLIN/TAZ 3.375G PREMIX 50 ML IV SCH ×3 (05:46→17:31)
[2017-05-26 06:44] LABS: CARBON DIOXIDE 38 mEq/L (21-32); CHLORIDE 104 mEq/L (98-107)
[2017-05-26] MEDS: BUDESONIDE 0.5MG/2ML NEB HHN SCH ×2 (07:23→20:27)
[2017-05-26 08:45] LABS: GLUCOSE URINE NEGATIVE (NEGATIVE); KETONES URINE TRACE (NEGATIVE); LEUKOCYTE ESTERASE URINE 2+ (NEGATIVE); NITRITE URINE NEGATIVE (NEGATIVE); OCCULT BLOOD URINE NEGATIVE (NEGATIVE); PROTEIN URINE NEGATIVE (NEGATIVE); SPECIFIC GRAVITY URINE 1.017 (1.005-1.030)
[2017-05-26 08:47] LABS: HEMATOCRIT. 53.9 % (42.0-52.0); HEMOGLOBIN. 15.8 g/dL (14.0-18.0); MEAN CORPUSCULAR HEMOGLOBIN 22.7 pg (28.0-32.0); MEAN CORPUSCULAR VOLUME 77.4 fL (80.0-94.0); RED BLOOD CELL COUNT 6.96 mill/uL (4.7-6.1); RED CELL DISTRIBUTION WIDTH 25.2 % (11.6-14.6)
[2017-05-26 08:47] LABS: CLARITY URINE SL HAZY (CLEAR); COLOR URINE YELLOW (YELLOW)
[2017-05-26] MEDS: PANTOPRAZOLE SODIUM 40 MG/VIAL IV SCH (09:57)
[2017-05-26] MEDS: DOCUSATE SODIUM SUGAR FREE 100MG/10ML UDC PO SCH (09:57)
[2017-05-26] MEDS: ENOXAPARIN 30MG/0.3ML SYR SUBCUT SCH ×2 (09:58→20:17)
[2017-05-26 10:01] LABS: PLATELET ESTIMATE SLIGHTLY DECREASED
[2017-05-26 10:02] LABS: MEAN PLATELET VOLUME 9.1 fl (7.4-10.4); PLATELET 112 x1000/uL (130-400)
[2017-05-27] VITALS (12 sets, daily range): BP systolic 84–102; BP diastolic 39–56
[2017-05-27] MEDS: PIPERACILLIN/TAZ 3.375G PREMIX 50 ML IV SCH ×5 (00:27→23:37)
[2017-05-27] MEDS: NYSTATIN 100,000 UNITS/ML 5ML UDC SSW SCH ×5 (00:27→23:37)
[2017-05-27] MEDS: METHYLPREDNISOLONE SOD SUCC 125 MG/2 ML VIAL IV SCH ×2 (02:17→09:42)
[2017-05-27 06:34] LABS: HEMATOCRIT. 48.8 % (42.0-52.0); HEMOGLOBIN. 15.1 g/dL (14.0-18.0); MEAN CORPUSCULAR HEMOGLOBIN 24.9 pg (28.0-32.0); MEAN CORPUSCULAR VOLUME 80.6 fL (80.0-94.0); PLATELET 121 x1000/uL (130-400); RED BLOOD CELL COUNT 6.06 mill/uL (4.7-6.1)
[2017-05-27 07:03] LABS: CARBON DIOXIDE 39 mEq/L (21-32); CHLORIDE 105 mEq/L (98-107)
[2017-05-27] MEDS: BUDESONIDE 0.5MG/2ML NEB HHN SCH (08:19)
[2017-05-27] MEDS: IPRATROPIUM/ALBUTEROL 0.5-3(2.5)MG/3ML NEB INH SCH ×3 (08:19→20:52)
[2017-05-27] MEDS: PANTOPRAZOLE SODIUM 40 MG/VIAL IV SCH (09:41)
[2017-05-27] MEDS: DOCUSATE SODIUM SUGAR FREE 100MG/10ML UDC PO SCH (09:42)
[2017-05-27] MEDS: ENOXAPARIN 30MG/0.3ML SYR SUBCUT SCH ×2 (09:42→21:13)
[2017-05-27] MEDS ORDERED: SODIUM CHLORIDE 0.9% 10ML VIAL ONE (11:53)
[2017-05-27] MEDS ORDERED: IOHEXOL-350 100 ML BOTTLE ONE (11:53)
[2017-05-27 12:24] LABS: BG BASE EXCESS 11.4 mmol/L (-2.0-2.0); BG DEOXYHEMOGLOBIN 8.2 % (0.0-5.0); BG HCO3 ACT 38.4 mmol/L (22.0-26.0); BG METHEMOGLOBIN 0.4 % (0.0-1.5); BG OXYGEN SATURATION 91.7 % (92.0-98.5); BG OXYHEMOGLOBIN 90.4 % (94.0-97.0); BG PH 7.439 (7.350-7.450); BG PO2 59.7 mmHg (75.0-100.0); BG SAMPLE SITE RIGHT RADIAL; BG TOTAL HEMOGLOBIN 16.5 g/dL (12.0-18.0); BG VENT MODE VAPOTHERM
[2017-05-27 12:26] LABS: BG BASE EXCESS 11.2 mmol/L (-2.0-2.0); BG DEOXYHEMOGLOBIN 23.1 % (0.0-5.0); BG HCO3 ACT 39.5 mmol/L (22.0-26.0); BG METHEMOGLOBIN 0.4 % (0.0-1.5); BG OXYGEN SATURATION 76.6 % (92.0-98.5); BG OXYHEMOGLOBIN 75.5 % (94.0-97.0); BG PCO2 66.6 mmHg (35.0-45.0); BG PH 7.391 (7.350-7.450); BG PO2 41.5 mmHg (75.0-100.0); BG SAMPLE SITE PA LINE; BG VENT MODE VAPOTHERM
[2017-05-27 14:14] LABS: PLATELET ESTIMATE SLIGHTLY DECREASED
[2017-05-27] MEDS: METHYLPREDNISOLONE SOD SUCC 40 MG/ML VIAL IV SCH (17:47)
[2017-05-28] VITALS (13 sets, daily range): BP systolic 83–119; BP diastolic 39–65
[2017-05-28] MEDS: METHYLPREDNISOLONE SOD SUCC 40 MG/ML VIAL IV SCH ×2 (01:01→09:00)
[2017-05-28] MEDS: IPRATROPIUM/ALBUTEROL 0.5-3(2.5)MG/3ML NEB INH SCH ×4 (03:36→21:08)
[2017-05-28] MEDS: NYSTATIN 100,000 UNITS/ML 5ML UDC SSW SCH ×3 (06:08→17:41)
[2017-05-28] MEDS: PIPERACILLIN/TAZ 3.375G PREMIX 50 ML IV SCH (06:08)
[2017-05-28] MEDS: ENOXAPARIN 30MG/0.3ML SYR SUBCUT SCH ×2 (08:45→21:12)
[2017-05-28] MEDS: DOCUSATE SODIUM SUGAR FREE 100MG/10ML UDC PO SCH (08:45)
[2017-05-28] MEDS: PANTOPRAZOLE SODIUM 40 MG/VIAL IV SCH (08:45)
[2017-05-28] MEDS: GUAIFENESIN 600MG ER TABLET PO SCH ×2 (11:08→21:12)
[2017-05-28] MEDS: CEFAZOLIN 1000MG PREMIX 50 ML IV SCH ×2 (12:06→21:12)
[2017-05-28] MEDS: PREDNISONE 20MG TABLET PO SCH (17:41)
[2017-05-29] VITALS (12 sets, daily range): BP systolic 76–139; BP diastolic 42–88
[2017-05-29] MEDS: NYSTATIN 100,000 UNITS/ML 5ML UDC SSW SCH ×4 (01:09→17:49)
[2017-05-29] MEDS: IPRATROPIUM/ALBUTEROL 0.5-3(2.5)MG/3ML NEB INH SCH ×4 (01:39→20:43)
[2017-05-29] MEDS: CEFAZOLIN 1000MG PREMIX 50 ML IV SCH ×3 (06:32→21:12)
[2017-05-29 06:40] LABS: MEAN CORPUSCULAR HEMOGLOBIN 28.9 pg (28.0-32.0); MEAN CORPUSCULAR VOLUME 84.6 fL (80.0-94.0); RED CELL DISTRIBUTION WIDTH 26.6 % (11.6-14.6)
[2017-05-29 06:47] LABS: CHLORIDE 102 mEq/L (98-107)
[2017-05-29 06:55] LABS: CARBON DIOXIDE 42 mEq/L (21-32)
[2017-05-29] MEDS: ENOXAPARIN 30MG/0.3ML SYR SUBCUT SCH ×2 (08:09→21:12)
[2017-05-29] MEDS: PANTOPRAZOLE SODIUM 40 MG/VIAL IV SCH (08:09)
[2017-05-29] MEDS: PREDNISONE 20MG TABLET PO SCH ×2 (08:09→17:49)
[2017-05-29] MEDS: DOCUSATE SODIUM SUGAR FREE 100MG/10ML UDC PO SCH (08:09)
[2017-05-29] MEDS: GUAIFENESIN 600MG ER TABLET PO SCH ×2 (08:09→21:11)
[2017-05-29 09:26] LABS: PLATELET ESTIMATE DECREASED
[2017-05-29 09:30] LABS: PLATELET 110 x1000/uL (130-400)
[2017-05-29] MEDS ORDERED: POTASSIUM CHLORIDE 20MEQ/PACKET PO NR (14:00)
[2017-05-30] VITALS (12 sets, daily range): BP systolic 79–116; BP diastolic 48–67
[2017-05-30] MEDS: NYSTATIN 100,000 UNITS/ML 5ML UDC SSW SCH ×5 (01:14→23:46)
[2017-05-30] MEDS: IPRATROPIUM/ALBUTEROL 0.5-3(2.5)MG/3ML NEB INH SCH ×4 (03:35→21:05)
[2017-05-30] MEDS: CEFAZOLIN 1000MG PREMIX 50 ML IV SCH ×3 (05:17→21:43)
[2017-05-30 06:51] LABS: CARBON DIOXIDE 38 mEq/L (21-32); CHLORIDE 106 mEq/L (98-107)
[2017-05-30] MEDS: PREDNISONE 20MG TABLET PO SCH (08:06)
[2017-05-30] MEDS: GUAIFENESIN 600MG ER TABLET PO SCH ×2 (08:06→21:05)
[2017-05-30] MEDS: PANTOPRAZOLE SODIUM 40 MG/VIAL IV SCH (08:06)
[2017-05-30] MEDS: DOCUSATE SODIUM SUGAR FREE 100MG/10ML UDC PO SCH (08:06)
[2017-05-30] MEDS: ENOXAPARIN 30MG/0.3ML SYR SUBCUT SCH ×4 (08:07→21:05)
[2017-05-30 08:13] LABS: HEMOGLOBIN. 15.5 g/dL (14.0-18.0); MEAN CORPUSCULAR HEMOGLOBIN 22.9 pg (28.0-32.0); MEAN CORPUSCULAR VOLUME 78.2 fL (80.0-94.0); RED BLOOD CELL COUNT 6.78 mill/uL (4.7-6.1); RED CELL DISTRIBUTION WIDTH 26.3 % (11.6-14.6)
[2017-05-30 09:00] LABS: NUCLEATED RED BLOOD CELLS 2 /100 WBC
[2017-05-30 10:13] LABS: BG BASE EXCESS 8.4 mmol/L (-2.0-2.0); BG CARBOXYHEMOGLOBIN 1.1 % (0.5-1.5); BG DEOXYHEMOGLOBIN 12.1 % (0.0-5.0); BG FRACTION INSPIRED OXYGEN 21; BG HCO3 ACT 37.4 mmol/L (22.0-26.0); BG METHEMOGLOBIN 0.1 % (0.0-1.5); BG OXYGEN SATURATION 87.8 % (92.0-98.5); BG OXYHEMOGLOBIN 86.7 % (94.0-97.0); BG PCO2 69.3 mmHg (35.0-45.0); BG SAMPLE SITE RIGHT BRACHIAL; BG TOTAL HEMOGLOBIN 16.8 g/dL (12.0-18.0); BG VENT MODE ROOM AIR
[2017-05-30 11:23] LABS: BG BASE EXCESS 8.8 mmol/L (-2.0-2.0); BG CARBOXYHEMOGLOBIN 1.1 % (0.5-1.5); BG DEOXYHEMOGLOBIN 8.6 % (0.0-5.0); BG FRACTION INSPIRED OXYGEN 28; BG HCO3 ACT 37.7 mmol/L (22.0-26.0); BG METHEMOGLOBIN 0.3 % (0.0-1.5); BG OXYGEN SATURATION 91.3 % (92.0-98.5); BG PCO2 68.7 mmHg (35.0-45.0); BG PH 7.357 (7.350-7.450); BG PO2 64.9 mmHg (75.0-100.0); BG SAMPLE SITE RIGHT RADIAL; BG TOTAL HEMOGLOBIN 16.6 g/dL (12.0-18.0); BG VENT MODE NASAL CANNULA
[2017-05-31] VITALS (12 sets, daily range): BP systolic 82–121; BP diastolic 32–87
[2017-05-31] MEDS: IPRATROPIUM/ALBUTEROL 0.5-3(2.5)MG/3ML NEB INH SCH ×4 (01:12→20:03)
[2017-05-31] MEDS: CEFAZOLIN 1000MG PREMIX 50 ML IV SCH ×3 (05:35→21:15)
[2017-05-31] MEDS: NYSTATIN 100,000 UNITS/ML 5ML UDC SSW SCH (05:35)
[2017-05-31 06:02] LABS: CARBON DIOXIDE 36 mEq/L (21-32); CHLORIDE 105 mEq/L (98-107)
[2017-05-31] MEDS: GUAIFENESIN 600MG ER TABLET PO SCH ×2 (08:25→21:15)
[2017-05-31] MEDS: ENOXAPARIN 30MG/0.3ML SYR SUBCUT SCH ×2 (08:26→21:15)
[2017-05-31] MEDS: PREDNISONE 20MG TABLET PO SCH (08:26)
[2017-05-31] MEDS: PANTOPRAZOLE SODIUM 40 MG/VIAL IV SCH (08:26)
[2017-05-31] MEDS: DOCUSATE SODIUM SUGAR FREE 100MG/10ML UDC PO SCH (08:26)
[2017-05-31 08:36] LABS: BASOPHILS % 0.3 % (0.0-2.0); HEMATOCRIT. 51.6 % (42.0-52.0); HEMOGLOBIN. 15.1 g/dL (14.0-18.0); LYMPHOCYTES % 18.5 % (20.0-50.0); MEAN CORPUSCULAR VOLUME 78.5 fL (80.0-94.0); NEUTROPHILS % 77.2 % (40.0-76.0); RED BLOOD CELL COUNT 6.57 mill/uL (4.7-6.1); RED CELL DISTRIBUTION WIDTH 26.3 % (11.6-14.6)
[2017-05-31 10:44] LABS: PLATELET 88 x1000/uL (130-400)
[2017-06-01] VITALS (10 sets, daily range): BP systolic 74–121; BP diastolic 40–61
[2017-06-01] MEDS: IPRATROPIUM/ALBUTEROL 0.5-3(2.5)MG/3ML NEB INH SCH ×4 (02:45→20:05)
[2017-06-01] MEDS: CEFAZOLIN 1000MG PREMIX 50 ML IV SCH ×2 (05:41→14:23)
[2017-06-01] MEDS: ENOXAPARIN 30MG/0.3ML SYR SUBCUT SCH (09:00)
[2017-06-01] MEDS: PANTOPRAZOLE SODIUM 40 MG/VIAL IV SCH (09:02)
[2017-06-01] MEDS: GUAIFENESIN 600MG ER TABLET PO SCH (09:02)
[2017-06-01] MEDS: PREDNISONE 20MG TABLET PO SCH (09:02)
[2017-06-01] MEDS: DOCUSATE SODIUM SUGAR FREE 100MG/10ML UDC PO SCH (09:02)
[2017-06-01 10:47] LABS: BG CARBOXYHEMOGLOBIN 1.9 % (0.5-1.5); BG DEOXYHEMOGLOBIN 13.6 % (0.0-5.0); BG FRACTION INSPIRED OXYGEN 21; BG METHEMOGLOBIN 0.3 % (0.0-1.5); BG OXYGEN SATURATION 86.1 % (92.0-98.5); BG OXYHEMOGLOBIN 84.2 % (94.0-97.0); BG PCO2 69.8 mmHg (35.0-45.0); BG PH 7.354 (7.350-7.450); BG PO2 56.2 mmHg (75.0-100.0); BG SAMPLE SITE RIGHT RADIAL; BG TOTAL HEMOGLOBIN 16.6 g/dL (12.0-18.0); BG VENT MODE ROOM AIR
== END 2017-06-01 21:30 | DRG 130 ==
LOC: ER 20:39 → SUPCPDRO 20:51 → 5EST 21:57 → ENRESERV 05-10 00:56 → MICUSO 05-10 19:00 → 5EST 05-21 02:42
PROVIDERS: ADMIT Family Medicine Adult Medicine; ATTEND Family Medicine Adult Medicine
PROC: 5A09357 Assistance with Respiratory Ventilation, Less than 24 Consecutive Hours, Continuous Positive Airway Pressure (ICD-10-PCS; 2017-05-09)
PROC: 5A1955Z Respiratory Ventilation, Greater than 96 Consecutive Hours (ICD-10-PCS; principal; 2017-05-10)
PROC: 0BH17EZ Insertion of Endotracheal Airway into Trachea, Via Natural or Artificial Opening (ICD-10-PCS; 2017-05-10)
PROC: 02HV33Z Insertion of Infusion Device into Superior Vena Cava, Percutaneous Approach (ICD-10-PCS; 2017-05-11)
PROC: B548ZZA Ultrasonography of Superior Vena Cava, Guidance (ICD-10-PCS; 2017-05-11)
PROC: 5A09457 Assistance with Respiratory Ventilation, 24-96 Consecutive Hours, Continuous Positive Airway Pressure (ICD-10-PCS; 2017-05-19)
DX: J96.21 Acute and chronic respiratory failure with hypoxia (principal); E43 Unspecified severe protein-calorie malnutrition; J90 Pleural effusion, not elsewhere classified; J84.9 Interstitial pulmonary disease, unspecified; E87.0 Hyperosmolality and hypernatremia; I95.9 Hypotension, unspecified; F79 Unspecified intellectual disabilities; D50.9 Iron deficiency anemia, unspecified; Z68.33 Body mass index [BMI] 33.0-33.9, adult; D69.6 Thrombocytopenia, unspecified; I10 Essential (primary) hypertension; J96.22 Acute and chronic respiratory failure with hypercapnia; J98.11 Atelectasis; N39.0 Urinary tract infection, site not specified; E66.2 Morbid (severe) obesity with alveolar hypoventilation; Q33.8 Other congenital malformations of lung
CPT/HCPCS: 31500; 36415; 36569; 36600; 71010; 71275; 74000; 76705; 76937; 80048; 80076; 80305; 81001; 82375; 82805; 83540; 83550; 83735; 83880; 84100; 84443; 84478; 84484; 85025; 85610; 87040; 87070; 87077; 87086; 87186; 92610; 93005; 93306; 93970; 94002; 94003; 94640; 94660; 94667; 96365; 97112; 97116; 97163; 97164; 97167; 97530; 99291; A4216; A6261; C1725; C9113; G0482; J0330; J0690; J1650; J1940; J1956; J2270; J2543; J2920; J2930; J3480; J3490; J7040; J7050; J7060; J7070; J7512; J7620; J7626; Q9967; A4315

== ENCOUNTER 2018-03-30 19:00 | Inpatient (IN) | payer MEDICAID ==
[~2018-03-30] VITALS: Ht 165.1 cm; Wt 85.4 kg
[2018-03-30 20:31] LABS: CHLORIDE 111 mEq/L (98-107); HEMATOCRIT. 44.3 % (42.0-52.0); HEMOGLOBIN. 15.1 g/dL (14.0-18.0); MEAN CORPUSCULAR HEMOGLOBIN 34.6 pg (28.0-32.0); MEAN CORPUSCULAR VOLUME 101.3 fL (80.0-94.0); MEAN PLATELET VOLUME 9.4 fl (7.4-10.4); PLATELET 202 x1000/uL (130-400); RED BLOOD CELL COUNT 4.38 mill/uL (4.7-6.1); RED CELL DISTRIBUTION WIDTH 14.1 % (11.6-14.6)
[2018-03-30 20:32] LABS: PROTHROMBIN TIME 10.7 sec (9.4-11.6)
[2018-03-30 20:50] LABS: PLATELET ESTIMATE NORMAL
[2018-03-30 23:00] VITALS: BP 114/56
[2018-03-31] MEDS ORDERED: ACETAMINOPHEN 325MG TABLET PO PRN ×2 (01:00→08:45)
[2018-03-31] MEDS ORDERED: MAGNESIUM/ALUMINUM HYDROXIDE/SIMETHICONE 30ML UDC PO PRN (08:45)
[2018-03-31] MEDS ORDERED: CLONIDINE 0.1MG TABLET PO PRN (08:45)
[2018-03-31] MEDS ORDERED: DOCUSATE SODIUM 100MG CAPSULE PO PRN (08:45)
[2018-03-31] MEDS ORDERED: CEFTRIAXONE 1 G PREMIX 50 ML IV SCH (08:45)
[2018-03-31] MEDS ORDERED: AZITHROMYCIN 500 MG in DEXT 5% WATER 250 ML IV SCH (08:45)
[2018-03-31] MEDS ORDERED: IPRATROPIUM/ALBUTEROL 0.5-3(2.5)MG/3ML NEB INH PRN (08:45)
[2018-03-31] MEDS: CEFTRIAXONE 1 G PREMIX 50 ML IV SCH (09:57)
[2018-03-31] MEDS: ENOXAPARIN 30MG/0.3ML SYR SUBCUT SCH ×2 (09:59→21:23)
[2018-03-31] MEDS: AZITHROMYCIN 500 MG in DEXT 5% WATER 250 ML IV SCH (10:02)
[2018-03-31 12:00] VITALS: BP 95/66
[2018-03-31] MEDS: GUAIFENESIN 200MG/10ML SUGAR FREE UDC PO PRN (12:33)
[2018-03-31] MEDS: IPRATROPIUM/ALBUTEROL 0.5-3(2.5)MG/3ML NEB HHN SCH ×3 (13:10→20:23)
[2018-03-31 14:00] VITALS: BP 101/58
[2018-03-31] MEDS ORDERED: AZIT250T12 MT (14:59)
[2018-03-31] MEDS ORDERED: AZITHROMYCIN 250 MG TABLET PO PRN (15:15)
[2018-03-31] MEDS ORDERED: PRED5TAB48 MT (15:19)
[2018-03-31 16:00] VITALS: BP 99/67
[2018-03-31] MEDS: PREDNISONE 10MG TABLET PO SCH (16:57)
[2018-03-31 17:00] VITALS: BP 100/60
[2018-03-31 20:00] VITALS: BP 91/59
[2018-03-31 22:00] VITALS: BP 91/54
[2018-04-01] VITALS (13 sets, daily range): BP systolic 90–115; BP diastolic 48–63
[2018-04-01] MEDS: IPRATROPIUM/ALBUTEROL 0.5-3(2.5)MG/3ML NEB HHN SCH ×7 (00:22→23:12)
[2018-04-01] MEDS: GUAIFENESIN 200MG/10ML SUGAR FREE UDC PO PRN (06:08)
[2018-04-01 07:36] LABS: CHLORIDE 110 mEq/L (98-107)
[2018-04-01] MEDS: ENOXAPARIN 30MG/0.3ML SYR SUBCUT SCH ×2 (08:37→20:10)
[2018-04-01] MEDS: PREDNISONE 10MG TABLET PO SCH (08:38)
[2018-04-01 09:53] LABS: BASOPHILS % 0.3 % (0.0-2.0); HEMATOCRIT. 45.8 % (42.0-52.0); HEMOGLOBIN. 14.9 g/dL (14.0-18.0); LYMPHOCYTES % 11.8 % (20.0-50.0); MEAN CORPUSCULAR HEMOGLOBIN 32.4 pg (28.0-32.0); MEAN CORPUSCULAR VOLUME 99.3 fL (80.0-94.0); MEAN PLATELET VOLUME 10.3 fl (7.4-10.4); MONOCYTES % 3.5 % (2.0-8.0); NEUTROPHILS % 84.4 % (40.0-76.0); PLATELET 145 x1000/uL (130-400); RED BLOOD CELL COUNT 4.61 mill/uL (4.7-6.1); RED CELL DISTRIBUTION WIDTH 14.5 % (11.6-14.6)
[2018-04-01] MEDS: CEFTRIAXONE 1 G PREMIX 50 ML IV SCH (09:56)
[2018-04-01] MEDS: AZITHROMYCIN 500 MG in DEXT 5% WATER 250 ML IV SCH (10:01)
[2018-04-01 10:29] LABS: BG BASE EXCESS 3.7 mmol/L (-2.0-2.0); BG DEOXYHEMOGLOBIN 11.1 % (0.0-5.0); BG HCO3 ACT 30.2 mmol/L (22.0-26.0); BG METHEMOGLOBIN 0.2 % (0.0-1.5); BG OXYGEN SATURATION 88.8 % (92.0-98.5); BG OXYHEMOGLOBIN 87.7 % (94.0-97.0); BG PCO2 52.4 mmHg (35.0-45.0); BG PH 7.378 (7.350-7.450); BG PO2 50.2 mmHg (75.0-100.0); BG SAMPLE SITE RIGHT RADIAL; BG TOTAL HEMOGLOBIN 15.2 g/dL (12.0-18.0); BG VENT MODE ROOM AIR
[2018-04-02] VITALS (8 sets, daily range): BP systolic 89–96; BP diastolic 49–64
[2018-04-02] MEDS: IPRATROPIUM/ALBUTEROL 0.5-3(2.5)MG/3ML NEB HHN SCH ×5 (03:46→20:53)
[2018-04-02 08:07] LABS: CHLORIDE 107 mEq/L (98-107)
[2018-04-02] MEDS: AZITHROMYCIN 500 MG in DEXT 5% WATER 250 ML IV SCH (08:37)
[2018-04-02] MEDS: CEFTRIAXONE 1 G PREMIX 50 ML IV SCH (08:37)
[2018-04-02] MEDS: ENOXAPARIN 30MG/0.3ML SYR SUBCUT SCH ×2 (08:38→21:06)
[2018-04-02 08:53] LABS: BASOPHILS % 0.2 % (0.0-2.0); HEMATOCRIT. 44.8 % (42.0-52.0); LYMPHOCYTES % 15.3 % (20.0-50.0); MEAN CORPUSCULAR VOLUME 98.5 fL (80.0-94.0); MEAN PLATELET VOLUME 9.5 fl (7.4-10.4); MONOCYTES % 4.9 % (2.0-8.0); NEUTROPHILS % 79.6 % (40.0-76.0); PLATELET 171 x1000/uL (130-400); RED BLOOD CELL COUNT 4.55 mill/uL (4.7-6.1)
[2018-04-02 08:58] LABS: HEMOGLOBIN. 14.6 g/dL (14.0-18.0)
[2018-04-02] MEDS ORDERED: PREDNISONE 10MG TABLET PO SCH (09:00)
[2018-04-02 10:17] LABS: BG BASE EXCESS 7.9 mmol/L (-2.0-2.0); BG CARBOXYHEMOGLOBIN 0.9 % (0.5-1.5); BG FRACTION INSPIRED OXYGEN 32; BG HCO3 ACT 35.1 mmol/L (22.0-26.0); BG METHEMOGLOBIN 0.2 % (0.0-1.5); BG OXYGEN SATURATION 92.9 % (92.0-98.5); BG OXYHEMOGLOBIN 91.9 % (94.0-97.0); BG PH 7.392 (7.350-7.450); BG PO2 63.4 mmHg (75.0-100.0); BG SAMPLE SITE RIGHT RADIAL; BG VENT MODE NASAL CANNULA
[2018-04-02] MEDS ORDERED: FUROSEMIDE 40MG/4ML VIAL IVP NR (15:30)
[2018-04-02] MEDS: GUAIFENESIN 600MG ER TABLET PO SCH (21:05)
[2018-04-03] VITALS (9 sets, daily range): BP systolic 87–99; BP diastolic 52–69
[2018-04-03] MEDS: IPRATROPIUM/ALBUTEROL 0.5-3(2.5)MG/3ML NEB HHN SCH ×4 (00:36→13:06)
[2018-04-03] MEDS: AZITHROMYCIN 500 MG in DEXT 5% WATER 250 ML IV SCH (07:48)
[2018-04-03] MEDS: ENOXAPARIN 30MG/0.3ML SYR SUBCUT SCH (08:11)
[2018-04-03] MEDS: GUAIFENESIN 600MG ER TABLET PO SCH (08:11)
[2018-04-03] MEDS: CEFTRIAXONE 1 G PREMIX 50 ML IV SCH (08:12)
[2018-04-03] MEDS ORDERED: FUROSEMIDE 20MG/2ML VIAL IVP SCH (09:00)
[2018-04-04] MEDS ORDERED: PREDNISONE 10MG TABLET PO SCH (09:00)
== END 2018-04-03 14:55 | disposition home or self-care (01) | DRG 720 ==
LOC: ER 20:05 → EDBEDREQTM 21:30 → 6EST 21:30 → ENRESERV 21:39 → EDBEDREQ 22:36 → 5EST 03-31 11:58
PROVIDERS: ADMIT Internal Medicine; ATTEND Internal Medicine
DX: A41.9 Sepsis, unspecified organism (principal); J96.21 Acute and chronic respiratory failure with hypoxia; E43 Unspecified severe protein-calorie malnutrition; J18.9 Pneumonia, unspecified organism; E87.0 Hyperosmolality and hypernatremia; J96.22 Acute and chronic respiratory failure with hypercapnia; N39.0 Urinary tract infection, site not specified; M19.90 Unspecified osteoarthritis, unspecified site; Z68.31 Body mass index [BMI] 31.0-31.9, adult
CPT/HCPCS: 36415; 36600; 71045; 80048; 80053; 82375; 82805; 83880; 84484; 85025; 85610; 87086; 87106; 93970; 94640; 94667; 97163; A6261; J0456; J0696; J1650; J1940; J7040; J7050; J7060; J7512; J7620